=== PATIENT | female | born 2000 | race Caucasian/White ===

== ENCOUNTER 2021-02-01 16:10 | Inpatient (IN) | payer BC, OTHER ==
[2021-02-01] MEDS ORDERED: LACTATED RINGERS SOLUTION 1000 ML INFUS.BAG IV ONE (16:36)
[2021-02-01] MEDS ORDERED: ONDANSETRON 4 MG/2 ML VIAL IVPUSH ONE (16:53)
[2021-02-01] MEDS ORDERED: FAMOTIDINE 20 MG/50 ML IVPB 20 MG/50 ML MG IVPB ONE ×2 (16:53→17:12)
[2021-02-01] MEDS ORDERED: ACETAMINOPHEN 500 MG TABLET (FP) PO ONE (16:53)
[2021-02-01] MEDS ORDERED: MAG HYDROX/AL HYDROX/SIMETH 30 ML UNIT-DOSE CUP PO ONE (16:53)
[2021-02-01] MEDS ORDERED: ACETAMINOPHEN 500 MG TABLET (FP) ONE (17:12)
[2021-02-01] MEDS ORDERED: MAG HYDROX/AL HYDROX/SIMETH 30 ML UNIT-DOSE CUP ONE (17:12)
[2021-02-01] MEDS ORDERED: ONDANSETRON 4 MG/2 ML VIAL ONE (17:12)
[2021-02-01] MEDS ORDERED: PIPERACILLIN/TAZOB 4.5 GM 4.5 GM in DEXTROSE 5%-WATER 100 ML IVPB ONE (18:53)
[2021-02-01 19:22] LABS: BASO % 1.5 % (0-2.0); EOS % 0.6 % (0-4.5); HEMATOCRIT 36.7 % (32.4-45.2); HEMOGLOBIN 12.8 GM/dl (10.7-15.3); LYMPH % 18.6 % (8-40); MCH 30.5 pg (25.7-33.7); MCHC 34.9 g/dl (32.0-36.0); MEAN CELL VOLUME 87.3 fl (80-96); MEAN PLT VOLUME 7.6 fl (7.5-11.1); MONO % 7.4 % (3.8-10.2); NEUT % 71.9 % (42.8-82.8); PLATELET COUNT 332 10^3/uL (134-434); RBC 4.21 M/mm3 (3.60-5.2); RDW 11.9 % (11.6-15.6)
[2021-02-01] MEDS ORDERED: PIPERACILLIN/TAZOBACTAM 4.5 GM VIAL IVPB ONE (19:23)
[2021-02-01] MEDS ORDERED: LACTATED RINGERS SOLUTION 1,000 ML/1,000 ML INFUS.BAG IV SCH (19:30)
[2021-02-01 19:34] LABS: ACTIVATED PTT 29.2 SECONDS (25.2-36.5)
[2021-02-01 19:37] LABS: ALBUMIN 3.7 g/dl (3.4-5.0); BILIRUBIN,TOTAL 0.8 mg/dl (0.2-1); CREATININE 0.6 mg/dl (0.55-1.3)
[2021-02-01 19:39] LABS: INR 1.33 (0.82-1.09); PROTHROMBIN TIME (PATIENT) 14.8 SEC (10.2-13.0)
[2021-02-02] MEDS ORDERED: PIPERACILLIN/TAZOB 3.375 GM 3.375 GM in DEXTROSE 5%-WATER - 50 ML IVPB SCH (02:00)
[2021-02-02] MEDS ORDERED: ONDANSETRON 4 MG/2 ML VIAL IVPUSH PRN (03:02)
[2021-02-02] MEDS ORDERED: ACETAMINOPHEN 1000 MG/100 ML VIAL IVPB PRN (03:03)
[2021-02-02 04:19] VITALS: BMI 25.2
[2021-02-02] MEDS ORDERED: DEXTROSE 5%-WATER - 50 ML IVPB ONE ×4 (04:24→20:59)
[2021-02-02] MEDS ORDERED: PIPERACILLIN/TAZOBACTAM 3.375 GM VIAL IVPB ONE ×4 (04:24→20:59)
[2021-02-02] MEDS: PIPERACILLIN/TAZOB 3.375 GM 3.375 GM in DEXTROSE 5%-WATER - 50 ML IVPB SCH ×4 (04:33→21:11)
[2021-02-02] MEDS: DEXTROSE 5%-LACTATED RINGERS 1,000 ML IV SCH (04:33)
[2021-02-02 08:20] LABS: BASO % 0.5 % (0-2.0); EOS % 0.3 % (0-4.5); HEMOGLOBIN 12.5 GM/dL (10.7-15.3); LYMPH % 13.5 % (8-40); MCH 29.8 pg (25.7-33.7); MCHC 34.6 g/dl (32.0-36.0); MEAN CELL VOLUME 86.1 fl (80-96); MEAN PLT VOLUME 7.3 fl (7.5-11.1); MONO % 7.7 % (3.8-10.2); PLATELET COUNT 304 10^3/uL (134-434); RBC 4.18 M/mm3 (3.60-5.2); RDW 12.3 % (11.6-15.6); WHITE BLOOD COUNT 11.2 K/mm3 (4.0-10.0)
[2021-02-02 08:27] LABS: INR 1.32 (0.83-1.09); PROTHROMBIN TIME (PATIENT) 14.8 SEC (9.7-13.0)
[2021-02-02 08:50] LABS: BLOOD UREA NITROGEN 5.5 mg/dL (7-18)
[2021-02-02 08:54] LABS: CREATININE 0.8 mg/dL (0.55-1.3)
[2021-02-02 08:58] LABS: MAGNESIUM 2.1 mg/dL (1.8-2.4)
[2021-02-02] MEDS ORDERED: morphine SULFATE 4 MG/ML VIAL IVPUSH PRN (09:47)
[2021-02-02] MEDS: FAMOTIDINE 20 MG/50 ML IVPB 20 MG/50 ML MG IVPB SCH ×2 (10:15→23:00)
[2021-02-03] MEDS ORDERED: DEXTROSE 5%-WATER - 50 ML IVPB ONE ×4 (00:50→20:35)
[2021-02-03] MEDS ORDERED: PIPERACILLIN/TAZOBACTAM 3.375 GM VIAL IVPB ONE ×4 (00:50→20:35)
[2021-02-03] MEDS: PIPERACILLIN/TAZOB 3.375 GM 3.375 GM in DEXTROSE 5%-WATER - 50 ML IVPB SCH ×4 (01:09→20:42)
[2021-02-03] MEDS: DEXTROSE 5%-LACTATED RINGERS 1,000 ML IV SCH ×2 (01:45→18:23)
[2021-02-03] MEDS: FAMOTIDINE 20 MG/50 ML IVPB 20 MG/50 ML MG IVPB SCH ×2 (10:58→21:49)
[2021-02-03] MEDS: HEPARIN NA (PORCINE) 5,000 UNITS/ML 1ML VIAL SQ SCH (21:00)
[2021-02-04] MEDS ORDERED: PIPERACILLIN/TAZOBACTAM 3.375 GM VIAL IVPB ONE ×4 (01:32→20:02)
[2021-02-04] MEDS ORDERED: DEXTROSE 5%-WATER - 50 ML IVPB ONE ×4 (01:32→20:03)
[2021-02-04] MEDS: DEXTROSE 5%-LACTATED RINGERS 1,000 ML IV SCH ×3 (02:27→20:55)
[2021-02-04] MEDS: PIPERACILLIN/TAZOB 3.375 GM 3.375 GM in DEXTROSE 5%-WATER - 50 ML IVPB SCH ×4 (02:28→20:48)
[2021-02-04 09:00] LABS: BASO % 0.4 % (0-2.0); EOS % 1.2 % (0-4.5); HEMATOCRIT 34.1 % (32.4-45.2); HEMOGLOBIN 11.8 GM/dL (10.7-15.3); LYMPH % 19.6 % (8-40); MCH 29.5 pg (25.7-33.7); MCHC 34.5 g/dl (32.0-36.0); MEAN CELL VOLUME 85.6 fl (80-96); MONO % 9.1 % (3.8-10.2); NEUT % 69.7 % (42.8-82.8); PLATELET COUNT 305 10^3/uL (134-434); RBC 3.98 M/mm3 (3.60-5.2); RDW 12.7 % (11.6-15.6); WHITE BLOOD COUNT 7.7 K/mm3 (4.0-10.0)
[2021-02-04 09:03] LABS: INR 1.3 (0.83-1.09); PROTHROMBIN TIME (PATIENT) 14.6 SEC (9.7-13.0)
[2021-02-04] MEDS: FAMOTIDINE 20 MG/50 ML IVPB 20 MG/50 ML MG IVPB SCH (09:15)
[2021-02-04] MEDS: HEPARIN NA (PORCINE) 5,000 UNITS/ML 1ML VIAL SQ SCH ×2 (09:16→21:03)
[2021-02-04 09:20] LABS: CALCIUM 9.1 mg/dL (8.5-10.1)
[2021-02-04 09:21] LABS: ALBUMIN 2.9 g/dl (3.4-5.0); BLOOD UREA NITROGEN 3.9 mg/dL (7-18)
[2021-02-04 09:24] LABS: CREATININE 0.7 mg/dL (0.55-1.3)
[2021-02-04 09:25] LABS: BILIRUBIN,TOTAL 0.6 mg/dL (0.2-1); TOT PROT 6.7 g/dl (6.4-8.2)
[2021-02-05] MEDS ORDERED: PIPERACILLIN/TAZOBACTAM 3.375 GM VIAL IVPB ONE ×4 (01:05→20:35)
[2021-02-05] MEDS ORDERED: DEXTROSE 5%-WATER - 50 ML IVPB ONE ×4 (01:05→20:35)
[2021-02-05] MEDS: DEXTROSE 5%-LACTATED RINGERS 1,000 ML IV SCH ×3 (01:45→23:26)
[2021-02-05] MEDS: PIPERACILLIN/TAZOB 3.375 GM 3.375 GM in DEXTROSE 5%-WATER - 50 ML IVPB SCH ×4 (01:45→20:50)
[2021-02-05 09:09] LABS: BASO % 0.7 % (0-2.0); EOS % 2.3 % (0-4.5); HEMATOCRIT 32.4 % (32.4-45.2); HEMOGLOBIN 11.3 GM/dL (10.7-15.3); LYMPH % 26.5 % (8-40); MCH 29.8 pg (25.7-33.7); MCHC 34.8 g/dl (32.0-36.0); MEAN CELL VOLUME 85.5 fl (80-96); MEAN PLT VOLUME 7.2 fl (7.5-11.1); MONO % 8.8 % (3.8-10.2); NEUT % 61.7 % (42.8-82.8); PLATELET COUNT 313 10^3/uL (134-434); RBC 3.79 M/mm3 (3.60-5.2); RDW 12.5 % (11.6-15.6); WHITE BLOOD COUNT 6.5 K/mm3 (4.0-10.0)
[2021-02-05 09:43] LABS: CALCIUM 8.9 mg/dL (8.5-10.1)
[2021-02-05 09:44] LABS: ALBUMIN 2.8 g/dl (3.4-5.0)
[2021-02-05] MEDS: HEPARIN NA (PORCINE) 5,000 UNITS/ML 1ML VIAL SQ SCH ×2 (09:44→21:43)
[2021-02-05 09:47] LABS: CREATININE 0.7 mg/dL (0.55-1.3)
[2021-02-05 09:49] LABS: BILIRUBIN,TOTAL 0.5 mg/dL (0.2-1); TOT PROT 6.4 g/dl (6.4-8.2)
[2021-02-06] MEDS ORDERED: PIPERACILLIN/TAZOBACTAM 3.375 GM VIAL IVPB ONE ×4 (00:57→20:39)
[2021-02-06] MEDS ORDERED: DEXTROSE 5%-WATER - 50 ML IVPB ONE ×4 (00:58→20:40)
[2021-02-06] MEDS: PIPERACILLIN/TAZOB 3.375 GM 3.375 GM in DEXTROSE 5%-WATER - 50 ML IVPB SCH ×4 (01:23→20:40)
[2021-02-06 08:26] LABS: BASO % 0.8 % (0-2.0); EOS % 2.8 % (0-4.5); HEMATOCRIT 33.1 % (32.4-45.2); HEMOGLOBIN 11.6 GM/dL (10.7-15.3); LYMPH % 30.7 % (8-40); MCH 29.8 pg (25.7-33.7); MCHC 35.1 g/dl (32.0-36.0); MEAN CELL VOLUME 84.8 fl (80-96); MEAN PLT VOLUME 7.1 fl (7.5-11.1); MONO % 7.7 % (3.8-10.2); PLATELET COUNT 351 10^3/uL (134-434); RBC 3.91 M/mm3 (3.60-5.2); RDW 12.5 % (11.6-15.6)
[2021-02-06 08:58] LABS: BLOOD UREA NITROGEN 5.2 mg/dL (7-18)
[2021-02-06 09:00] LABS: BILIRUBIN,TOTAL 0.3 mg/dL (0.2-1); TOT PROT 6.6 g/dl (6.4-8.2)
[2021-02-06 09:01] LABS: ALBUMIN 2.8 g/dl (3.4-5.0); CALCIUM 9.2 mg/dL (8.5-10.1)
[2021-02-06 09:04] LABS: CREATININE 0.7 mg/dL (0.55-1.3)
[2021-02-06] MEDS: HEPARIN NA (PORCINE) 5,000 UNITS/ML 1ML VIAL SQ SCH ×2 (09:11→21:12)
[2021-02-06] MEDS: DEXTROSE 5%-LACTATED RINGERS 1,000 ML IV SCH (20:39)
[2021-02-07] MEDS ORDERED: DEXTROSE 5%-WATER - 50 ML IVPB ONE ×3 (01:40→13:56)
[2021-02-07] MEDS ORDERED: PIPERACILLIN/TAZOBACTAM 3.375 GM VIAL IVPB ONE ×3 (01:40→13:56)
[2021-02-07] MEDS: PIPERACILLIN/TAZOB 3.375 GM 3.375 GM in DEXTROSE 5%-WATER - 50 ML IVPB SCH ×3 (01:43→15:33)
[2021-02-07] MEDS: DEXTROSE 5%-LACTATED RINGERS 1,000 ML IV SCH ×2 (01:52→06:03)
[2021-02-07 08:45] LABS: BASO % 1.2 % (0-2.0); EOS % 2.9 % (0-4.5); HEMATOCRIT 34.5 % (32.4-45.2); HEMOGLOBIN 12.1 GM/dL (10.7-15.3); LYMPH % 35.4 % (8-40); MCH 29.4 pg (25.7-33.7); MEAN CELL VOLUME 84.2 fl (80-96); MEAN PLT VOLUME 7.4 fl (7.5-11.1); MONO % 8.5 % (3.8-10.2); PLATELET COUNT 334 10^3/uL (134-434); RDW 12.1 % (11.6-15.6); WHITE BLOOD COUNT 5.2 K/mm3 (4.0-10.0)
[2021-02-07 09:24] LABS: BLOOD UREA NITROGEN 4.4 mg/dL (7-18)
[2021-02-07 09:25] LABS: ALBUMIN 2.9 g/dl (3.4-5.0); CALCIUM 9.3 mg/dL (8.5-10.1)
[2021-02-07 09:27] LABS: CREATININE 0.8 mg/dL (0.55-1.3)
[2021-02-07 09:28] LABS: BILIRUBIN,TOTAL 0.3 mg/dL (0.2-1)
[2021-02-07] MEDS: HEPARIN NA (PORCINE) 5,000 UNITS/ML 1ML VIAL SQ SCH (09:38)
[2021-02-07 14:10] VITALS: BP 128/82; PULSE 95; TEMP 98.6
[2021-02-07] MEDS ORDERED: DEXTROSE 5%-WATER 100 ML IVPB ONE (14:24)
[2021-02-07] MEDS ORDERED: CEFTRIAXONE 2 GM in DEXTROSE 5%-WATER 2 GM/100 ML BAG IVPB SCH (15:00)
[2021-02-07] MEDS ORDERED: metroNIDAZOLE 250 MG TABLET PO SCH (22:00)
== END 2021-02-07 18:05 | disposition home or self-care (01) | DRG 373 ==
LOC: FER 16:10 → J7W 02-02 04:10
PROVIDERS: ADMIT Internal Medicine
PROC: 02HV33Z Insertion of Infusion Device into Superior Vena Cava, Percutaneous Approach (ICD-10-PCS; principal; 2021-02-07)
PROC: B518ZZA Fluoroscopy of Superior Vena Cava, Guidance (ICD-10-PCS; 2021-02-07)
DX: K35.32 Acute appendicitis with perforation, localized peritonitis, and gangrene, without abscess (principal); D72.829 Elevated white blood cell count, unspecified; R10.9 Unspecified abdominal pain
CPT/HCPCS: 36415; 36569; 74176-TC; 74177-TC; 76830-TC; 80048; 80053; 83735; 84703; 85025; 85610; 85730; 86140; 86850; 86900; 86901; 87040; 99285-25; C9803; J0131; Q9967; U0003; U0005

== ENCOUNTER 2021-03-04 16:59 | Emergency (ER) | payer OTHER ==
[2021-03-04 17:16] VITALS: BP 132/80; PULSE 103; TEMP 99.1; BMI 25.5
== END 2021-03-04 19:55 | disposition home or self-care (01) ==
LOC: FER 16:59
DX: R06.02 Shortness of breath (principal); R07.89 Other chest pain
CPT/HCPCS: 36415; 71046-TC-FY; 84484; 85379; 93005; 99285-25

== ENCOUNTER 2021-07-26 04:09 | Day surgery (SDC) | payer OTHER ==
[2021-07-23 12:40] VITALS: BMI 32.1
[2021-07-26] MEDS ORDERED: BUPIVACAINE HCL/PF 0.5% (5MG/ML) 10 ML VIAL ONE (07:11)
[2021-07-26] MEDS ORDERED: MIDAZOLAM HCL 2 MG/2 ML SINGLE DOSE VIAL ONE ×2 (07:54)
[2021-07-26] MEDS ORDERED: PROPOFOL 20 ML ONE ×3 (07:55)
[2021-07-26] MEDS ORDERED: FENTANYL CITRATE/PF 50 MCG/ML VIAL ONE ×6 (07:55→10:48)
[2021-07-26] MEDS ORDERED: ROCURONIUM BROMIDE 50 MG/5 ML SYRINGE ONE (07:55)
[2021-07-26] MEDS ORDERED: BUPIVACAINE HCL/PF 0.5% (5MG/ML) 10 ML VIAL IJ ONE ×2 (08:00→08:35)
[2021-07-26] MEDS ORDERED: cefOXitin SODIUM 1 GM VIAL (RESTRICTED TO ID) IVPB ONE (08:15)
[2021-07-26] MEDS ORDERED: cefOXitin SODIUM 2 GM VIAL (RESTRICTED TO ID) IVPB ONE (08:19)
[2021-07-26] MEDS ORDERED: NEOSTIGMINE METHYLSULFATE 0.5 MG/ML - 10 ML MDV ONE (08:48)
[2021-07-26] MEDS ORDERED: LIDOCAINE HCL 2% JELLY (5 ML/TUBE) ONE (08:49)
[2021-07-26] MEDS ORDERED: DEXAMETHASONE SOD PHOSPHATE 4 MG/1 ML VIAL ONE (08:49)
[2021-07-26] MEDS ORDERED: LIDOCAINE HCL/PF 2% SDV 5ML VIAL ONE (08:49)
[2021-07-26] MEDS ORDERED: GLYCOPYRROLATE 0.2 MG/1 ML VIAL ONE (08:49)
[2021-07-26] MEDS ORDERED: LACTATED RINGERS SOLUTION 1,000 ML IV SCH (10:00)
[2021-07-26] MEDS ORDERED: oxyCODONE HCL 5 MG TABLET PO PRN (10:00)
[2021-07-26] MEDS ORDERED: ONDANSETRON 4 MG/2 ML VIAL IVPUSH PRN (10:00)
[2021-07-26] MEDS ORDERED: PROMETHAZINE HCL 25 MG/1 ML VIAL IVPUSH PRN (10:00)
[2021-07-26 14:08] VITALS: BP 115/73; PULSE 56; TEMP 97
== END 2021-07-26 14:27 | disposition home or self-care (01) ==
LOC: JASU-SURG 04:09
PROVIDERS: ATTEND Surgery
PROC: 0DTJ4ZZ Resection of Appendix, Percutaneous Endoscopic Approach (ICD-10-PCS; principal; 2021-07-26 08:00)
DX: K36 Other appendicitis (principal)
CPT/HCPCS: 81025; 88307-TC; 94760

== ENCOUNTER 2021-10-07 07:27 | Day surgery (SDC) | payer OTHER ==
[2021-10-03 11:12] VITALS: BMI 25.8
[2021-10-07] MEDS ORDERED: PROPOFOL 20 ML ONE ×4 (07:49)
[2021-10-07] MEDS ORDERED: LIDOCAINE HCL/PF 2% SDV 5ML VIAL ONE (07:49)
[2021-10-07 08:44] VITALS: TEMP 98.2
[2021-10-07 09:16] VITALS: BP 106/58; PULSE 78; RESP 16
== END 2021-10-07 09:21 | disposition home or self-care (01) ==
LOC: FASU-ENDO 07:27
PROVIDERS: ATTEND Internal Medicine Gastroenterology
PROC: 0DJD8ZZ Inspection of Lower Intestinal Tract, Via Natural or Artificial Opening Endoscopic (ICD-10-PCS; principal; 2021-10-07 08:20)
DX: Z12.11 Encounter for screening for malignant neoplasm of colon (principal); Z86.012 Personal history of benign carcinoid tumor
CPT/HCPCS: 81025